=== PATIENT | male | born 1975 | race Hispanic/Latino ===

== ENCOUNTER 2021-09-30 11:55 | Inpatient (IN) | payer BC, OTHER ==
[~2021-09-30] VITALS: Ht 172.7 cm; Wt 91.6 kg
[2021-09-30] MEDS: SODIUM CHLORIDE 0.9% 1000ML 1,000 ML IV SCH ×4 (10:00→16:00)
[2021-09-30] MEDS ORDERED: CEFTRIAXONE 1 GM VIAL IM ONE (12:15)
[2021-09-30] MEDS ORDERED: INSULIN REGULAR, HUMAN 100 UNIT/1 ML SQ ONE (12:15)
[2021-09-30] MEDS ORDERED: AZITHROMYCIN 250 MG TAB PO ONE (12:15)
[2021-09-30] MEDS ORDERED: DILTIAZEM HCL 5 MG/ML 5 ML VIAL IV ONE (12:30)
[2021-09-30 12:47] LABS: BASOPHILS # (AUTO) 0.1 (0.0-0.1); BASOPHILS % 0.8 % (0.0-1.0); EOSINOPHILS # (AUTO) 0.1 (0.0-0.4); EOSINOPHILS % 0.8 % (0.0-6.0); HEMATOCRIT 53.5 % (38.2-49.6); LYMPHOCYTES # (AUTO) 1.8 (1.0-3.2); LYMPHOCYTES % 22.9 % (18.0-39.1); MEAN CORPUSCULAR HEMOGLOBIN 33.2 pg (28-32); MEAN CORPUSCULAR HGB CONC 35.5 g/dL (31-35); MEAN CORPUSCULAR VOLUME 93.4 fL (81-99); MONOCYTES # (AUTO) 0.6 (0.2-0.8); MONOCYTES % 7.9 % (4.4-11.3); NEUTROPHILS # (AUTO) 5.1 (2.1-6.9); NEUTROPHILS % 66.4 % (38.7-80.0); PLATELET COUNT 175 x10e3/uL (140-360); RED BLOOD COUNT 5.73 x10e6/uL (4.3-5.7)
[2021-09-30 13:06] LABS: ALBUMIN 3.1 g/dL (3.5-5.0); ALBUMIN/GLOBULIN RATIO 0.8 (0.8-2.0); ANION GAP 14.9 mmol/L (8-16); CREATININE, SERUM 1.25 mg/dL (0.72-1.25); POTASSIUM 3.9 mmol/L (3.5-5.1)
[2021-09-30] MEDS ORDERED: INSULIN REGULAR, HUMAN 100 UNIT/1 ML IV ONE (13:30)
[2021-09-30] MEDS ORDERED: ONDANSETRON HCL INJ 2MG/ML 2ML 2 MG/ML VIAL IV PRN (15:00)
[2021-09-30] MEDS ORDERED: DILTIAZEM HCL ER 120 MG CAP PO STA (16:48)
[2021-09-30] MEDS ORDERED: DILTIAZEM HCL 5 MG/ML 5 ML VIAL IV STA (17:13)
[2021-09-30] MEDS ORDERED: DIGOXIN INJ 0.25 MG/ML 2 ML AMP IV ONE (17:15)
[2021-09-30] MEDS: VALACYCLOVIR HCL 500 MG TAB PO SCH (17:20)
[2021-09-30] MEDS: HYDROCODONE/APAP 5MG-325MG TAB PO PRN (21:58)
[2021-10-01 00:36] LABS: CREATINE KINASE MB 1.3 ng/mL (0-5.0)
[2021-10-01] MEDS ORDERED: POLYETHYLENE GLYCOL 3350 17 GM PACK PO PRN (01:30)
[2021-10-01] MEDS ORDERED: ACETAMINOPHEN 325 MG TAB PO PRN (01:30)
[2021-10-01] MEDS ORDERED: TEMAZEPAM 7.5 MG CAP PO PRN (01:30)
[2021-10-01 08:42] LABS: BASOPHILS # (AUTO) 0.1 (0.0-0.1); EOSINOPHILS # (AUTO) 0.1 (0.0-0.4); EOSINOPHILS % 1.4 % (0.0-6.0); HEMATOCRIT 51.6 % (38.2-49.6); HEMOGLOBIN 18.2 g/dL (14.0-18.0); LYMPHOCYTES # (AUTO) 2.1 (1.0-3.2); LYMPHOCYTES % 26.9 % (18.0-39.1); MEAN CORPUSCULAR HEMOGLOBIN 33.5 pg (28-32); MEAN CORPUSCULAR HGB CONC 35.3 g/dL (31-35); MEAN CORPUSCULAR VOLUME 94.9 fL (81-99); MONOCYTES # (AUTO) 0.6 (0.2-0.8); MONOCYTES % 7.2 % (4.4-11.3); NEUTROPHILS # (AUTO) 4.9 (2.1-6.9); NEUTROPHILS % 61.9 % (38.7-80.0); PLATELET COUNT 168 x10e3/uL (140-360); RED BLOOD COUNT 5.44 x10e6/uL (4.3-5.7); RED CELL DISTRIBUTION WIDTH 12.2 % (11.7-14.4)
[2021-10-01 09:04] LABS: CHOL/HDL RATIO 7.6 (3.9-4.7); MAGNESIUM 1.8 MG/DL (1.3-2.1); PHOSPHORUS 2.1 MG/DL (2.3-4.7)
[2021-10-01 09:08] LABS: ANION GAP 11.7 mmol/L (8-16); CALCIUM 8.6 mg/dL (8.4-10.2); CREATININE, SERUM 1.16 mg/dL (0.72-1.25); POTASSIUM 5.7 mmol/L (3.5-5.1)
[2021-10-01] MEDS ORDERED: DEXTROSE 50% SYRINGE 50 ML IV PRN ×2 (09:15→17:15)
[2021-10-01 09:16] LABS: CREATINE KINASE MB 1.2 ng/mL (0-5.0)
[2021-10-01 09:25] LABS: THYROID STIMULATING HORMONE 19.909 uIU/mL (0.350-4.940)
[2021-10-01 09:46] LABS: LYMPHOCYTES % (MANUAL) 40 % (19-48); MONOCYTES % (MANUAL) 5 % (3.4-9.0); MYELOCYTES % (MANUAL) 1 % (0-0); NEUTROPHILS % (MANUAL) 54 % (40-74); PLATELET ESTIMATE ADEQUATE; PLATELET MORPHOLOGY COMMENT NORMAL; RBC MORPHOLOGY COMMENT NORMAL
[2021-10-01] MEDS: DOCUSATE SODIUM 100 MG CAP PO SCH ×2 (10:00→17:00)
[2021-10-01] MEDS ORDERED: SODIUM PHOSPHATE 15 MMOL in SODIUM CHLORIDE 0.9% 250ML 250 ML INJ ONE (10:00)
[2021-10-01] MEDS: SODIUM CHLORIDE 0.9% 1000ML 1,000 ML IV SCH ×3 (10:00→23:58)
[2021-10-01] MEDS: VALACYCLOVIR HCL 500 MG TAB PO SCH ×2 (10:00→17:00)
[2021-10-01] MEDS ORDERED: SOD POLYSTYRENE SULFONATE SUSP 15 GM/60 ML BTL PO ONE (10:00)
[2021-10-01] MEDS: FAMOTIDINE 20 MG TAB PO SCH ×2 (10:00→16:30)
[2021-10-01 10:38] VITALS: BP 129/111
[2021-10-01] MEDS: METOPROLOL TARTRATE INJ 1 MG/ML VIAL IV PRN (10:40)
[2021-10-01 11:04] VITALS: BP 153/111
[2021-10-01] MEDS ORDERED: INSULIN REGULAR, HUMAN 100 UNIT/1 ML SQ SCH (11:30)
[2021-10-01 12:00] VITALS: BP 130/102
[2021-10-01] MEDS ORDERED: INSULIN REGULAR, HUMAN 100 UNIT/1 ML IV ONE (12:15)
[2021-10-01 16:00] VITALS: BP 142/99
[2021-10-01] MEDS: ASCORBIC ACID 500 MG TAB PO SCH (17:00)
[2021-10-01] MEDS: ZINC SULFATE 220 MG CAP PO SCH (17:00)
[2021-10-01] MEDS ORDERED: WARFARIN SOD 2 MG TAB PO SCH (17:00)
[2021-10-01] MEDS: INSULIN LISPRO 100 UNIT/1 ML 3ML VIAL SQ SCH ×3 (17:30→20:15)
[2021-10-01 17:52] LABS: INR 0.93; PROTHROMBIN TIME 13.2 seconds (11.9-14.5)
[2021-10-01 19:52] VITALS: BP 142/99
[2021-10-01] MEDS: INSULIN GLARGINE 100 UNITS/ML VIAL SQ SCH (20:15)
[2021-10-01 21:00] VITALS: BP 142/99
[2021-10-01] MEDS ORDERED: INSULIN GLARGINE 100 UNITS/ML VIAL SQ SCH (21:00)
[2021-10-01] MEDS: APIXABAN 5 MG TABLET PO SCH (21:46)
[2021-10-01] MEDS: METOPROLOL SUCCINATE 50 MG TAB XL PO SCH (21:47)
[2021-10-01] MEDS ORDERED: CEFTRIAXONE 500 MG VIAL IM ONE (22:45)
[2021-10-01] MEDS ORDERED: LIDOCAINE HCL 1% LOCAL INJ 20 ML VIAL IM ONE (23:15)
[2021-10-02] VITALS (7 sets, daily range): BP systolic 136–154; BP diastolic 97–109
[2021-10-02 06:43] LABS: BASOPHILS # (AUTO) 0.1 (0.0-0.1); EOSINOPHILS # (AUTO) 0.1 (0.0-0.4); EOSINOPHILS % 1.1 % (0.0-6.0); HEMOGLOBIN 17.3 g/dL (14.0-18.0); LYMPHOCYTES # (AUTO) 2.6 (1.0-3.2); LYMPHOCYTES % 32.6 % (18.0-39.1); MEAN CORPUSCULAR HEMOGLOBIN 32.8 pg (28-32); MEAN CORPUSCULAR HGB CONC 34.6 g/dL (31-35); MEAN CORPUSCULAR VOLUME 94.9 fL (81-99); MONOCYTES # (AUTO) 0.5 (0.2-0.8); MONOCYTES % 6.8 % (4.4-11.3); NEUTROPHILS # (AUTO) 4.5 (2.1-6.9); NEUTROPHILS % 57.5 % (38.7-80.0); PLATELET COUNT 172 x10e3/uL (140-360); RED BLOOD COUNT 5.27 x10e6/uL (4.3-5.7)
[2021-10-02] MEDS: SODIUM CHLORIDE 0.9% 1000ML 1,000 ML IV SCH ×3 (07:00→20:30)
[2021-10-02 07:25] LABS: ANION GAP 11.8 mmol/L (8-16); CALCIUM 7.9 mg/dL (8.4-10.2); CREATININE, SERUM 0.99 mg/dL (0.72-1.25); MAGNESIUM 1.8 MG/DL (1.3-2.1); PHOSPHORUS 2.8 MG/DL (2.3-4.7); POTASSIUM 3.8 mmol/L (3.5-5.1)
[2021-10-02] MEDS ORDERED: DILTIAZEM HCL 30 MG TAB PO SCH (07:30)
[2021-10-02] MEDS: INSULIN LISPRO 100 UNIT/1 ML 3ML VIAL SQ SCH ×7 (07:30→20:26)
[2021-10-02] MEDS: FAMOTIDINE 20 MG TAB PO SCH ×2 (07:30→16:30)
[2021-10-02] MEDS: ZINC SULFATE 220 MG CAP PO SCH ×2 (09:00→17:00)
[2021-10-02] MEDS: APIXABAN 5 MG TABLET PO SCH ×2 (09:00→17:00)
[2021-10-02] MEDS: METOPROLOL SUCCINATE 50 MG TAB XL PO SCH ×3 (09:00→20:25)
[2021-10-02] MEDS: CHOLECALCIFEROL 400 UNIT TAB PO SCH (09:00)
[2021-10-02] MEDS: DOCUSATE SODIUM 100 MG CAP PO SCH ×2 (09:00→17:00)
[2021-10-02] MEDS: ASCORBIC ACID 500 MG TAB PO SCH ×2 (09:00→17:00)
[2021-10-02] MEDS: VALACYCLOVIR HCL 500 MG TAB PO SCH ×2 (09:00→17:00)
[2021-10-02] MEDS: INSULIN GLARGINE 100 UNITS/ML VIAL SQ SCH (20:26)
[2021-10-03] VITALS (8 sets, daily range): BP systolic 128–148; BP diastolic 90–120
[2021-10-03] MEDS: LEVOTHYROXINE SODIUM 75 MCG TAB PO SCH (05:29)
[2021-10-03] MEDS ORDERED: ONDANSETRON HCL 4 MG ORAL DISINTEGRATING TAB PO PRN (07:45)
[2021-10-03] MEDS: FAMOTIDINE 20 MG TAB PO SCH ×2 (08:59→16:17)
[2021-10-03] MEDS: SODIUM CHLORIDE 0.9% 1000ML 1,000 ML IV SCH ×2 (08:59→16:12)
[2021-10-03] MEDS: DOCUSATE SODIUM 100 MG CAP PO SCH ×2 (09:01→16:17)
[2021-10-03] MEDS: CHOLECALCIFEROL 400 UNIT TAB PO SCH (09:01)
[2021-10-03] MEDS: METOPROLOL SUCCINATE 50 MG TAB XL PO SCH ×2 (09:01→22:21)
[2021-10-03] MEDS: ASCORBIC ACID 500 MG TAB PO SCH ×2 (09:01→16:17)
[2021-10-03] MEDS: VALACYCLOVIR HCL 500 MG TAB PO SCH ×2 (09:01→16:17)
[2021-10-03] MEDS: ZINC SULFATE 220 MG CAP PO SCH ×2 (09:01→16:17)
[2021-10-03] MEDS: APIXABAN 5 MG TABLET PO SCH ×2 (09:01→16:17)
[2021-10-03] MEDS: INSULIN LISPRO 100 UNIT/1 ML 3ML VIAL SQ SCH ×7 (09:02→22:24)
[2021-10-03] MEDS ORDERED: INSULIN GLARGINE 100 UNITS/ML VIAL SQ SCH (21:00)
[2021-10-04] VITALS (7 sets, daily range): BP systolic 130–147; BP diastolic 78–104
[2021-10-04] MEDS: SODIUM CHLORIDE 0.9% 1000ML 1,000 ML IV SCH ×3 (01:12→13:06)
[2021-10-04] MEDS: METOPROLOL TARTRATE INJ 1 MG/ML VIAL IV PRN (05:05)
[2021-10-04] MEDS: LEVOTHYROXINE SODIUM 75 MCG TAB PO SCH (06:29)
[2021-10-04] MEDS: INSULIN LISPRO 100 UNIT/1 ML 3ML VIAL SQ SCH ×6 (07:27→15:39)
[2021-10-04] MEDS: FAMOTIDINE 20 MG TAB PO SCH ×2 (08:12→16:16)
[2021-10-04] MEDS: DOCUSATE SODIUM 100 MG CAP PO SCH ×2 (08:12→16:16)
[2021-10-04] MEDS: VALACYCLOVIR HCL 500 MG TAB PO SCH ×2 (08:13→16:16)
[2021-10-04] MEDS: APIXABAN 5 MG TABLET PO SCH ×2 (08:13→16:16)
[2021-10-04] MEDS: ZINC SULFATE 220 MG CAP PO SCH ×2 (08:13→16:17)
[2021-10-04] MEDS: CHOLECALCIFEROL 400 UNIT TAB PO SCH (08:13)
[2021-10-04] MEDS: ASCORBIC ACID 500 MG TAB PO SCH ×2 (08:13→16:16)
[2021-10-04] MEDS: METOPROLOL SUCCINATE 50 MG TAB XL PO SCH (08:13)
[2021-10-04] MEDS: HYDROCODONE/APAP 5MG-325MG TAB PO PRN (11:42)
[2021-10-04] MEDS ORDERED: SYNTHROID75 MCG PO (15:54)
[2021-10-04] MEDS ORDERED: Cholecalciferol PO (15:54)
[2021-10-04] MEDS ORDERED: TOPROL XL50 MG PO (15:54)
[2021-10-04] MEDS ORDERED: VALTREX500 MG PO (15:54)
[2021-10-04] MEDS ORDERED: Insulin Glargine SQ (15:54)
[2021-10-04] MEDS ORDERED: Insulin Lispro SQ (15:54)
[2021-10-04] MEDS ORDERED: ASCORBIC ACID500 MG PO (15:54)
[2021-10-04] MEDS ORDERED: ELIQUIS5 MG PO (15:54)
== END 2021-10-04 17:19 | disposition home or self-care (01) | DRG 727 ==
LOC: ER 12:02 → ERHOLD 14:51 → MED/SURG2 10-01 09:24
PROVIDERS: ADMIT Internal Medicine; ATTEND Internal Medicine
DX: A60.01 Herpesviral infection of penis (principal); U07.1 COVID-19; A54.01 Gonococcal cystitis and urethritis, unspecified; I48.20 Chronic atrial fibrillation, unspecified; E11.65 Type 2 diabetes mellitus with hyperglycemia; I10 Essential (primary) hypertension; Z91.14 Patient's other noncompliance with medication regimen; Z84.1 Family history of disorders of kidney and ureter; E87.5 Hyperkalemia; E83.39 Other disorders of phosphorus metabolism; E05.90 Thyrotoxicosis, unspecified without thyrotoxic crisis or storm; E78.5 Hyperlipidemia, unspecified; Z79.4 Long term (current) use of insulin; E03.9 Hypothyroidism, unspecified; Z72.0 Tobacco use
CPT/HCPCS: 36415; 71045; 80048; 80053; 80061; 82550; 82553; 82948; 83036; 83735; 84100; 84443; 84484; 85025; 85610; 86592; 87491; 87591; 93005; 93306; 94799; 99285; J0696; J1160; J1815; J1817; J2001; J2405; J7030; J7050; U0002

== ENCOUNTER 2022-04-16 08:22 | Emergency (ER) | payer BC, OTHER ==
[~2022-04-16] VITALS: Ht 172.7 cm; Wt 91.6 kg
[~2022-04-16 08:22] MED LIST: ASCORBIC ACID500 MG PO; Cholecalciferol PO; ELIQUIS5 MG PO; Insulin Glargine SQ; Insulin Lispro SQ; SYNTHROID75 MCG PO; TOPROL XL50 MG PO; VALTREX500 MG PO
[2022-04-16] MEDS ORDERED: DOXYCYCLINE HY100 MG PO (08:32)
== END 2022-04-16 08:42 | disposition home or self-care (01) ==
LOC: ER 08:25
DX: L02.212 Cutaneous abscess of back [any part, except buttock and flank] (principal); I10 Essential (primary) hypertension; E11.9 Type 2 diabetes mellitus without complications; I48.91 Unspecified atrial fibrillation
CPT/HCPCS: 99284

== ENCOUNTER 2022-07-26 09:27 | Inpatient (IN) | payer SELFPAY ==
[~2022-07-26] VITALS: Ht 172.7 cm; Wt 91.6 kg
[~2022-07-26 09:27] MED LIST changes: +DOXYCYCLINE HY100 MG PO
[2022-07-26] MEDS ORDERED: DILTIAZEM HCL 5 MG/ML 5 ML VIAL IV STA (09:46)
[2022-07-26] MEDS ORDERED: METOPROLOL TARTRATE INJ 1 MG/ML VIAL IV STA (09:46)
[2022-07-26] MEDS ORDERED: DIGOXIN INJ 0.25 MG/ML 2 ML AMP IV STA (09:46)
[2022-07-26 10:10] LABS: BASOPHILS # (AUTO) 0.1 (0.0-0.1); EOSINOPHILS % 0.3 % (0.0-6.0); HEMATOCRIT 52.3 % (38.2-49.6); HEMOGLOBIN 17.7 g/dL (14.0-18.0); LYMPHOCYTES # (AUTO) 0.9 (1.0-3.2); LYMPHOCYTES % 13.1 % (18.0-39.1); MEAN CORPUSCULAR HEMOGLOBIN 34.4 pg (28-32); MEAN CORPUSCULAR HGB CONC 33.8 g/dL (31-35); MEAN CORPUSCULAR VOLUME 101.6 fL (81-99); MONOCYTES # (AUTO) 0.4 (0.2-0.8); MONOCYTES % 6.5 % (4.4-11.3); NEUTROPHILS # (AUTO) 5.2 (2.1-6.9); NEUTROPHILS % 77.2 % (38.7-80.0); PLATELET COUNT 130 x10e3/uL (140-360); RED BLOOD COUNT 5.15 x10e6/uL (4.3-5.7); RED CELL DISTRIBUTION WIDTH 13.2 % (11.7-14.4)
[2022-07-26 10:40] LABS: ALBUMIN 2.9 g/dL (3.5-5.0); ALBUMIN/GLOBULIN RATIO 0.8 (0.8-2.0); ANION GAP 16.9 mmol/L (8-16); CALCIUM 8.7 mg/dL (8.4-10.2); CREATININE, SERUM 1.16 mg/dL (0.72-1.25); POTASSIUM 4.9 mmol/L (3.5-5.1)
[2022-07-26 10:46] LABS: CREATINE KINASE MB 5.6 ng/mL (0-5.0)
[2022-07-26] MEDS ORDERED: Morphine 4mg INJECTION 4 MG/ML INJ IV PRN (11:30)
[2022-07-26] MEDS ORDERED: ONDANSETRON HCL INJ 2MG/ML 2ML 2 MG/ML VIAL IV PRN (11:30)
[2022-07-26] MEDS ORDERED: IOPAMIDOL 370 MG/ML 100 ML INFUS..BTL INJ ONE (11:50)
[2022-07-26] MEDS ORDERED: METOPROLOL TARTRATE 50 MG TAB PO ONE (15:15)
[2022-07-26] MEDS: DILTIAZEM HCL CR 120MG TAB PO SCH (15:25)
[2022-07-26] MEDS ORDERED: DEXTROSE 50% SYRINGE 50 ML IV PRN (16:30)
[2022-07-26 16:35] VITALS: BP 172/135
[2022-07-26] MEDS: APIXABAN 5 MG TABLET PO SCH (17:18)
[2022-07-26] MEDS: ASCORBIC ACID 500 MG TAB PO SCH (17:18)
[2022-07-26] MEDS: METOPROLOL SUCCINATE 50 MG TAB XL PO SCH (17:19)
[2022-07-26] MEDS: INSULIN LISPRO 100 UNIT/1 ML 3ML VIAL SQ SCH ×2 (17:22→21:54)
[2022-07-26 18:01] LABS: CREATINE KINASE MB 4.8 ng/mL (0-5.0)
[2022-07-26 20:00] VITALS: BP 112/93
[2022-07-26 20:01] VITALS: BP 112/93
[2022-07-26] MEDS ORDERED: INSULIN GLARGINE 34 UNIT SQ SCH (21:00)
[2022-07-26] MEDS ORDERED: SODIUM CHLORIDE 0.9% 250ML 250 ML ONE (21:51)
[2022-07-26] MEDS: INSULIN GLARGINE 100 UNITS/ML VIAL SQ SCH (21:55)
[2022-07-26] MEDS: GUAIFENESIN 600MG/DEXTROMETHORPHAN 30MG TABSR PO PRN (23:07)
[2022-07-26] MEDS ORDERED: METOPROLOL TARTRATE INJ 1 MG/ML VIAL IV PRN (23:30)
[2022-07-26] MEDS ORDERED: POLYETHYLENE GLYCOL 3350 17 GM PACK PO PRN (23:30)
[2022-07-27] VITALS (8 sets, daily range): BP systolic 105–116; BP diastolic 83–99
[2022-07-27 06:00] LABS: BASOPHILS # (AUTO) 0.1 (0.0-0.1); BASOPHILS % 0.8 % (0.0-1.0); EOSINOPHILS % 0.2 % (0.0-6.0); HEMATOCRIT 48.1 % (38.2-49.6); HEMOGLOBIN 17.2 g/dL (14.0-18.0); LYMPHOCYTES # (AUTO) 1.1 (1.0-3.2); LYMPHOCYTES % 13.1 % (18.0-39.1); MEAN CORPUSCULAR HEMOGLOBIN 34.3 pg (28-32); MEAN CORPUSCULAR HGB CONC 35.8 g/dL (31-35); MONOCYTES # (AUTO) 0.6 (0.2-0.8); MONOCYTES % 7.2 % (4.4-11.3); NEUTROPHILS # (AUTO) 6.8 (2.1-6.9); NEUTROPHILS % 77.8 % (38.7-80.0); PLATELET COUNT 131 x10e3/uL (140-360); RED BLOOD COUNT 5.01 x10e6/uL (4.3-5.7); RED CELL DISTRIBUTION WIDTH 13.4 % (11.7-14.4)
[2022-07-27] MEDS ORDERED: LEVOTHYROXINE SODIUM 75 MCG TAB PO SCH (06:00)
[2022-07-27 06:06] LABS: INR 1.06; PROTHROMBIN TIME 14.8 seconds (11.9-14.5)
[2022-07-27 06:19] LABS: ALBUMIN 2.5 g/dL (3.5-5.0); ALBUMIN/GLOBULIN RATIO 0.7 (0.8-2.0); ANION GAP 14.1 mmol/L (8-16); CALCIUM 8.4 mg/dL (8.4-10.2); CREATININE, SERUM 0.89 mg/dL (0.72-1.25); POTASSIUM 4.1 mmol/L (3.5-5.1)
[2022-07-27 06:59] LABS: MAGNESIUM 1.7 MG/DL (1.3-2.1); PHOSPHORUS 2.3 MG/DL (2.3-4.7)
[2022-07-27] MEDS: INSULIN LISPRO 100 UNIT/1 ML 3ML VIAL SQ SCH ×7 (07:30→21:39)
[2022-07-27] MEDS ORDERED: PANTOPRAZOLE SOD 40 MG TABEC PO SCH (07:30)
[2022-07-27] MEDS ORDERED: INSULIN LISPRO 18 UNIT SQ SCH (07:30)
[2022-07-27 08:07] LABS: CREATINE KINASE MB 3.1 ng/mL (0-5.0)
[2022-07-27] MEDS: APIXABAN 5 MG TABLET PO SCH ×2 (08:50→17:18)
[2022-07-27] MEDS: METOPROLOL SUCCINATE 50 MG TAB XL PO SCH ×2 (08:50→21:29)
[2022-07-27] MEDS: ASCORBIC ACID 500 MG TAB PO SCH ×2 (08:50→17:18)
[2022-07-27] MEDS: DILTIAZEM HCL CR 120MG TAB PO SCH (08:51)
[2022-07-27] MEDS ORDERED: CHOLECALCIFEROL 400 UNIT PO SCH (09:00)
[2022-07-27] MEDS ORDERED: CHOLECALCIFEROL 400 UNIT TAB PO SCH (09:00)
[2022-07-27] MEDS ORDERED: MAGNESIUM SULF 1GRAM/DEXTROSE 100 ML IV ONE (09:00)
[2022-07-27] MEDS: DOCUSATE SODIUM 100 MG CAP PO SCH ×2 (09:02→17:18)
[2022-07-27] MEDS: GUAIFENESIN 600MG/DEXTROMETHORPHAN 30MG TABSR PO PRN ×2 (11:25→21:41)
[2022-07-27] MEDS ORDERED: ONDANSETRON HCL 4 MG ORAL DISINTEGRATING TAB PO PRN (11:30)
[2022-07-27 14:47] LABS: CREATINE KINASE MB 3.4 ng/mL (0-5.0)
[2022-07-27] MEDS ORDERED: FUROSEMIDE 40 MG TAB PO SCH (18:15)
[2022-07-27] MEDS: INSULIN GLARGINE 100 UNITS/ML VIAL SQ SCH (21:39)
[2022-07-28] VITALS: BP 109/76
== END 2022-07-28 01:28 | disposition left against medical advice (07) | DRG 291 ==
LOC: ER 09:34 → ERHOLD 11:33 → MED/SURG3 16:01
PROVIDERS: ADMIT Internal Medicine; ATTEND Internal Medicine
DX: I11.0 Hypertensive heart disease with heart failure (principal); J18.9 Pneumonia, unspecified organism; I48.91 Unspecified atrial fibrillation; K74.60 Unspecified cirrhosis of liver; I50.9 Heart failure, unspecified; E11.65 Type 2 diabetes mellitus with hyperglycemia; Z91.14 Patient's other noncompliance with medication regimen; E83.42 Hypomagnesemia; Z20.822 Contact with and (suspected) exposure to COVID-19; R74.01 Elevation of levels of liver transaminase levels; F17.200 Nicotine dependence, unspecified, uncomplicated
CPT/HCPCS: 36415; 71045; 71260; 74177; 76705; 80053; 82550; 82553; 82948; 83690; 83735; 83880; 84100; 84484; 85025; 85379; 85610; 87400; 93005; 94799; 96360; 99284; J1160; J2543; J3475; J7050; Q9967

== ENCOUNTER 2022-10-12 10:00 | Inpatient (IN) | payer SELFPAY ==
[~2022-10-12] VITALS: Ht 172.7 cm; Wt 91.6 kg
[2022-10-12 10:30] LABS: BASOPHILS # (AUTO) 0.1 (0.0-0.1); EOSINOPHILS % 0.4 % (0.0-6.0); HEMATOCRIT 52.1 % (38.2-49.6); HEMOGLOBIN 17.7 g/dL (14.0-18.0); LYMPHOCYTES # (AUTO) 1.1 (1.0-3.2); LYMPHOCYTES % 13.6 % (18.0-39.1); MEAN CORPUSCULAR HEMOGLOBIN 34.5 pg (28-32); MEAN CORPUSCULAR VOLUME 101.6 fL (81-99); MONOCYTES # (AUTO) 0.5 (0.2-0.8); MONOCYTES % 6.5 % (4.4-11.3); NEUTROPHILS # (AUTO) 6.3 (2.1-6.9); NEUTROPHILS % 77.2 % (38.7-80.0); PLATELET COUNT 153 x10e3/uL (140-360); RED BLOOD COUNT 5.13 x10e6/uL (4.3-5.7); RED CELL DISTRIBUTION WIDTH 12.2 % (11.7-14.4)
[2022-10-12] MEDS ORDERED: ONDANSETRON HCL INJ 2MG/ML 2ML 2 MG/ML VIAL IV STA (10:35)
[2022-10-12] MEDS ORDERED: SODIUM CHLORIDE 0.9% 1000ML 1,000 ML IV STA ×2 (10:35→11:37)
[2022-10-12] MEDS ORDERED: Morphine 4mg INJECTION 4 MG/ML INJ IV STA (10:35)
[2022-10-12 10:40] LABS: INR 0.91; PROTHROMBIN TIME 12.5 seconds (11.9-14.5)
[2022-10-12 10:41] LABS: PARTIAL THROMBOPLASTIN TIME 28.1 seconds (23.8-35.5)
[2022-10-12] MEDS ORDERED: INSULIN REGULAR, HUMAN 100 UNIT/1 ML IV ONE (10:45)
[2022-10-12] MEDS ORDERED: METOPROLOL TARTRATE INJ 1 MG/ML VIAL IV ONE (10:45)
[2022-10-12] MEDS ORDERED: Vancomycin IV 1 GM in SODIUM CHLORIDE 0.9% 250ML 250 ML IV ONE (10:45)
[2022-10-12 10:54] LABS: ALANINE AMINOTRANSFERASE 61 IU/L (0-55); ALBUMIN 2.6 g/dL (3.5-5.0); ALBUMIN/GLOBULIN RATIO 0.6 (0.8-2.0); ALKALINE PHOSPHATASE 210 IU/L (40-150); ANION GAP 15.3 mmol/L (8-16); BLOOD UREA NITROGEN 15 mg/dL (7-26); BUN/CREATININE RATIO 10 (6-25); CALCIUM 8.9 mg/dL (8.4-10.2); CARBON DIOXIDE 25 mmol/L (22-29); CHLORIDE 92 mmol/L (98-107); CREATINE KINASE 196 IU/L (30-200); CREATININE, SERUM 1.52 mg/dL (0.72-1.25); MAGNESIUM 1.8 MG/DL (1.3-2.1); POTASSIUM 4.3 mmol/L (3.5-5.1); SODIUM 128 mmol/L (136-145)
[2022-10-12 10:56] LABS: GLUCOSE 739 mg/dL (74-118)
[2022-10-12] MEDS ORDERED: IOPAMIDOL 370 MG/ML 100 ML INFUS..BTL INJ ONE (11:18)
[2022-10-12] MEDS ORDERED: METOPROLOL TARTRATE 25 MG TAB PO ONE (11:45)
[2022-10-12] MEDS ORDERED: INSULIN GLARGINE 100 UNITS/ML VIAL SQ ONE (12:30)
[2022-10-12] MEDS ORDERED: ENOXAPARIN SODIUM INJ 100 MG/ML SYR SC SCH (12:30)
[2022-10-12] MEDS ORDERED: DEXTROSE 50% SYRINGE 50 ML IV PRN (12:30)
[2022-10-12] MEDS ORDERED: ONDANSETRON HCL INJ 2MG/ML 2ML 2 MG/ML VIAL IV PRN (12:30)
[2022-10-12] MEDS ORDERED: Vancomycin IV 1 GM in SODIUM CHLORIDE 0.9% 250ML 250 ML IV SCH (12:30)
[2022-10-12 14:43] LABS: CLARITY,URINE CLEAR (CLEAR); COLOR,URINE YELLOW (YELLOW); LEUKOCYTE ESTERASE ,URINE NEGATIVE (NEGATIVE); NITRITE,URINE NEGATIVE (NEGATIVE)
[2022-10-12 14:44] LABS: KETONES,URINE NEGATIVE (NEGATIVE); PROTEIN,URINE DIPSTICK >=300 (NEGATIVE); URINE UROBILINOGEN 1 mg/dL (0.2 - 1)
[2022-10-12] MEDS: SODIUM CHLORIDE 0.9% 1000ML 1,000 ML IV SCH (14:50)
[2022-10-12 14:52] LABS: BACTERIA,URINE FEW /HPF; EPITHELIAL CELLS,URINE RARE /LPF; RBC,URINE 0-5 /HPF (0-5)
[2022-10-12 15:00] VITALS: BP 121/92
[2022-10-12] MEDS ORDERED: METOPROLOL TARTRATE 25 MG TAB PO SCH (17:00)
[2022-10-12 17:21] VITALS: BP 121/92
[2022-10-12] MEDS: ASCORBIC ACID 500 MG TAB PO SCH (17:28)
[2022-10-12] MEDS ORDERED: FLUCONAZOLE 100 MG TAB PO ONE (17:30)
[2022-10-12] MEDS: INSULIN LISPRO 100 UNIT/1 ML 3ML VIAL SQ SCH ×2 (17:30→21:46)
[2022-10-12] MEDS: Morphine 2mg Syringe 2 MG/ML SYR IV PRN ×2 (17:36→23:37)
[2022-10-12] MEDS: VALACYCLOVIR HCL 500 MG TAB PO SCH (17:55)
[2022-10-12 20:00] VITALS: BP 98/81
[2022-10-12] MEDS ORDERED: INSULIN GLARGINE 100 UNITS/ML VIAL SQ SCH (21:00)
[2022-10-12] MEDS: METOPROLOL SUCCINATE 50 MG TAB XL PO SCH (21:36)
[2022-10-12] MEDS ORDERED: METOPROLOL TARTRATE INJ 1 MG/ML VIAL IV PRN (22:45)
[2022-10-12] MEDS ORDERED: DIGOXIN INJ 0.25 MG/ML 2 ML AMP IV ONE (22:45)
[2022-10-12 23:16] VITALS: BP 98/81
[2022-10-13] VITALS (8 sets, daily range): BP systolic 109–137; BP diastolic 83–97
[2022-10-13 05:19] LABS: ALBUMIN 2.2 g/dL (3.5-5.0); ALBUMIN/GLOBULIN RATIO 0.6 (0.8-2.0); ANION GAP 11.7 mmol/L (8-16); CALCIUM 8.3 mg/dL (8.4-10.2); CREATININE, SERUM 0.91 mg/dL (0.72-1.25); POTASSIUM 3.7 mmol/L (3.5-5.1)
[2022-10-13] MEDS: SODIUM CHLORIDE 0.9% 1000ML 1,000 ML IV SCH ×3 (05:59→23:55)
[2022-10-13] MEDS: LEVOTHYROXINE SODIUM 75 MCG TAB PO SCH (06:00)
[2022-10-13] MEDS: Morphine 2mg Syringe 2 MG/ML SYR IV PRN ×4 (06:12→20:47)
[2022-10-13] MEDS: INSULIN LISPRO 100 UNIT/1 ML 3ML VIAL SQ SCH ×7 (07:30→21:00)
[2022-10-13] MEDS: VALACYCLOVIR HCL 500 MG TAB PO SCH ×2 (09:10→17:20)
[2022-10-13] MEDS: FLUCONAZOLE 100 MG TAB PO SCH (09:10)
[2022-10-13] MEDS: ASCORBIC ACID 500 MG TAB PO SCH ×2 (09:10→17:20)
[2022-10-13] MEDS: APIXABAN 5 MG TABLET PO SCH ×2 (09:10→17:20)
[2022-10-13] MEDS: METOPROLOL SUCCINATE 50 MG TAB XL PO SCH ×2 (09:11→21:37)
[2022-10-13 14:45] LABS: CHOL/HDL RATIO 5.7 (3.9-4.7); CHOLESTEROL 311 MD/DL (0-199); HDL CHOLESTEROL 55 MG/DL (40-60); LDL CHOLESTEROL 235 MG/DL (60-130); TRIGLYCERIDES 106 MG/DL (0-149)
[2022-10-13 15:05] LABS: FREE T4 (FREE THYROXINE) < 0.40 ng/dL (0.8-1.8)
[2022-10-13] MEDS ORDERED: INSULIN GLARGINE 100 UNITS/ML VIAL SQ SCH (21:00)
[2022-10-14] VITALS: BP 106/82
[2022-10-14 04:00] VITALS: BP 128/84
[2022-10-14] MEDS: LEVOTHYROXINE SODIUM 75 MCG TAB PO SCH (05:19)
[2022-10-14 05:42] LABS: BASOPHILS # (AUTO) 0.1 (0.0-0.1); BASOPHILS % 0.9 % (0.0-1.0); EOSINOPHILS # (AUTO) 0.2 (0.0-0.4); EOSINOPHILS % 1.9 % (0.0-6.0); HEMATOCRIT 49.3 % (38.2-49.6); HEMOGLOBIN 16.8 g/dL (14.0-18.0); LYMPHOCYTES # (AUTO) 1.9 (1.0-3.2); MEAN CORPUSCULAR HEMOGLOBIN 34.4 pg (28-32); MEAN CORPUSCULAR HGB CONC 34.1 g/dL (31-35); MONOCYTES # (AUTO) 0.6 (0.2-0.8); MONOCYTES % 7.8 % (4.4-11.3); NEUTROPHILS # (AUTO) 5.2 (2.1-6.9); NEUTROPHILS % 64.4 % (38.7-80.0); PLATELET COUNT 161 x10e3/uL (140-360); RED BLOOD COUNT 4.88 x10e6/uL (4.3-5.7); RED CELL DISTRIBUTION WIDTH 12.6 % (11.7-14.4)
[2022-10-14 06:04] LABS: ANION GAP 13.9 mmol/L (8-16); CALCIUM 8.1 mg/dL (8.4-10.2); CREATININE, SERUM 0.9 mg/dL (0.72-1.25); POTASSIUM 3.9 mmol/L (3.5-5.1)
[2022-10-14] MEDS: INSULIN LISPRO 100 UNIT/1 ML 3ML VIAL SQ SCH ×4 (07:30→12:02)
[2022-10-14 08:00] VITALS: BP 128/84
[2022-10-14 08:33] VITALS: BP 117/94
[2022-10-14] MEDS: FLUCONAZOLE 100 MG TAB PO SCH (08:51)
[2022-10-14] MEDS: METOPROLOL SUCCINATE 50 MG TAB XL PO SCH (08:51)
[2022-10-14] MEDS: APIXABAN 5 MG TABLET PO SCH (08:51)
[2022-10-14] MEDS: VALACYCLOVIR HCL 500 MG TAB PO SCH (08:52)
[2022-10-14] MEDS: ASCORBIC ACID 500 MG TAB PO SCH (08:52)
[2022-10-14 12:21] VITALS: BP 136/96
== END 2022-10-14 12:50 | disposition home or self-care (01) | DRG 638 ==
LOC: ER 10:05 → ERHOLD 12:34 → MED/SURG3 14:10
PROVIDERS: ADMIT Internal Medicine; ATTEND Internal Medicine
DX: E10.65 Type 1 diabetes mellitus with hyperglycemia (principal); B37.49 Other urogenital candidiasis; I48.20 Chronic atrial fibrillation, unspecified; I50.22 Chronic systolic (congestive) heart failure; N49.2 Inflammatory disorders of scrotum; I11.0 Hypertensive heart disease with heart failure; E03.9 Hypothyroidism, unspecified; F17.200 Nicotine dependence, unspecified, uncomplicated; K74.60 Unspecified cirrhosis of liver; Z79.2 Long term (current) use of antibiotics; Z79.4 Long term (current) use of insulin; Z79.01 Long term (current) use of anticoagulants; Z79.899 Other long term (current) drug therapy; Z90.49 Acquired absence of other specified parts of digestive tract; Z91.14 Patient's other noncompliance with medication regimen; Z86.16 Personal history of COVID-19
CPT/HCPCS: 0223U; 36415; 71045; 74177; 76870; 80048; 80053; 80061; 81001; 82550; 82553; 82948; 83036; 83605; 83735; 84439; 84443; 84484; 85025; 85610; 85730; 87040; 87086; 93005; 93976; 96361; 99252; 99284; J1160; J1650; J1815; J1817; J2270; J2405; J2543; J3370; J7030; J7050; Q9967

== ENCOUNTER 2022-11-11 03:12 | Inpatient (IN) | payer BC, OTHER ==
[~2022-11-11] VITALS: Ht 172.7 cm; Wt 91.6 kg
[2022-11-11] MEDS ORDERED: FENTANYL CITRATE/PF 100MCG/2 ML INJ IV ONE (03:30)
[2022-11-11] MEDS ORDERED: SODIUM CHLORIDE 0.9% 1000ML 1,000 ML IV ONE ×2 (03:30→04:15)
[2022-11-11] MEDS ORDERED: FENTANYL CITRATE/PF 100MCG/2 ML INJ ONE (03:43)
[2022-11-11 03:53] LABS: BASOPHILS # (AUTO) 0.1 (0.0-0.1); BASOPHILS % 1.3 % (0.0-1.0); EOSINOPHILS % 0.1 % (0.0-6.0); HEMATOCRIT 48.6 % (38.2-49.6); HEMOGLOBIN 17.4 g/dL (14.0-18.0); LYMPHOCYTES # (AUTO) 1.4 (1.0-3.2); LYMPHOCYTES % 15.2 % (18.0-39.1); MEAN CORPUSCULAR HEMOGLOBIN 35.1 pg (28-32); MEAN CORPUSCULAR HGB CONC 35.8 g/dL (31-35); MONOCYTES # (AUTO) 0.5 (0.2-0.8); MONOCYTES % 5.5 % (4.4-11.3); NEUTROPHILS % 76.3 % (38.7-80.0); PLATELET COUNT 159 x10e3/uL (140-360); RED BLOOD COUNT 4.96 x10e6/uL (4.3-5.7); RED CELL DISTRIBUTION WIDTH 12.9 % (11.7-14.4)
[2022-11-11 03:55] LABS: INR 0.98; PARTIAL THROMBOPLASTIN TIME 28.3 seconds (23.8-35.5); PROTHROMBIN TIME 13.2 seconds (11.9-14.5)
[2022-11-11 04:04] LABS: ALBUMIN/GLOBULIN RATIO 0.9 (0.8-2.0); ANION GAP 16.8 mmol/L (8-16); CALCIUM 9.3 mg/dL (8.4-10.2); CREATININE, SERUM 1.6 mg/dL (0.72-1.25); POTASSIUM 4.8 mmol/L (3.5-5.1)
[2022-11-11] MEDS ORDERED: IOPAMIDOL 370 MG/ML 100 ML INFUS..BTL INJ ONE (04:53)
[2022-11-11] MEDS ORDERED: SODIUM CHLORIDE 0.9% 200 ML ONE (04:54)
[2022-11-11 04:55] LABS: AMPHETAMINES SCREEN,URINE NEGATIVE (NEGATIVE); BENZODIAZEPINES SCREEN,URINE NEGATIVE (NEGATIVE); PHENCYCLIDINE SCREEN,URINE NEGATIVE (NEGATIVE)
[2022-11-11] MEDS ORDERED: LIDOCAINE HCL 1% LOCAL INJ 20 ML VIAL ONE (05:11)
[2022-11-11] MEDS ORDERED: INSULIN REGULAR, HUMAN 100 UNIT/1 ML IV ONE (05:30)
[2022-11-11] MEDS ORDERED: ONDANSETRON HCL INJ 2MG/ML 2ML 2 MG/ML VIAL IV PRN (06:00)
[2022-11-11] MEDS: SODIUM CHLORIDE 0.9% 1000ML 1,000 ML IV SCH ×2 (06:00→13:39)
[2022-11-11] MEDS ORDERED: Morphine 2mg Syringe 2 MG/ML SYR IV PRN (06:00)
[2022-11-11] MEDS ORDERED: DILTIAZEM HCL 5 MG/ML 5 ML VIAL IV STA (06:02)
[2022-11-11] MEDS ORDERED: DIGOXIN INJ 0.25 MG/ML 2 ML AMP IV ONE ×2 (07:00→08:00)
[2022-11-11] MEDS ORDERED: HYDROCODONE/APAP 10MG-325MG TAB PO ONE (07:00)
[2022-11-11] MEDS ORDERED: DIGOXIN INJ 0.25 MG/ML 2 ML AMP ONE (07:01)
[2022-11-11 07:07] LABS: HEMATOCRIT 42.6 % (38.2-49.6); HEMOGLOBIN 14.7 g/dL (14.0-18.0)
[2022-11-11 08:19] LABS: ALBUMIN 2.3 g/dL (3.5-5.0); ALBUMIN/GLOBULIN RATIO 0.9 (0.8-2.0); ANION GAP 14.9 mmol/L (8-16); CREATININE, SERUM 1.13 mg/dL (0.72-1.25); POTASSIUM 3.9 mmol/L (3.5-5.1)
[2022-11-11 08:26] LABS: CALCIUM 7.9 mg/dL (8.4-10.2)
[2022-11-11] MEDS ORDERED: DEXTROSE 50% SYRINGE 50 ML IV PRN (09:15)
[2022-11-11] MEDS ORDERED: METOPROLOL TARTRATE 50 MG TAB PO ONE (10:15)
[2022-11-11] MEDS ORDERED: METOPROLOL TARTRATE INJ 1 MG/ML VIAL IV PRN (10:15)
[2022-11-11 11:36] LABS: HEMATOCRIT 44.4 % (38.2-49.6); HEMOGLOBIN 14.8 g/dL (14.0-18.0)
[2022-11-11] MEDS: INSULIN REGULAR, HUMAN 100 UNIT/1 ML SQ SCH ×3 (11:45→20:59)
[2022-11-11] MEDS: INSULIN LISPRO 100 UNIT/1 ML 3ML VIAL SQ SCH ×2 (11:45→17:01)
[2022-11-11 12:34] VITALS: BP 145/93
[2022-11-11 12:42] VITALS: BP 145/93
[2022-11-11 15:38] VITALS: BP 116/85
[2022-11-11 16:05] LABS: HEMATOCRIT 42.1 % (38.2-49.6)
[2022-11-11] MEDS: VALACYCLOVIR HCL 500 MG TAB PO SCH (16:51)
[2022-11-11] MEDS: ASCORBIC ACID 500 MG TAB PO SCH (16:51)
[2022-11-11 18:33] LABS: HEMATOCRIT 42.6 % (38.2-49.6); HEMOGLOBIN 13.9 g/dL (14.0-18.0)
[2022-11-11 20:00] VITALS: BP 98/69
[2022-11-11] MEDS ORDERED: INSULIN GLARGINE 100 UNITS/ML VIAL SQ SCH (21:00)
[2022-11-11] MEDS: METOPROLOL SUCCINATE 50 MG TAB XL PO SCH (21:00)
[2022-11-12] VITALS: BP 104/84
[2022-11-12 04:00] VITALS: BP 120/92
[2022-11-12 05:55] LABS: BASOPHILS # (AUTO) 0.1 (0.0-0.1); EOSINOPHILS # (AUTO) 0.1 (0.0-0.4); EOSINOPHILS % 1.4 % (0.0-6.0); HEMATOCRIT 41.3 % (38.2-49.6); HEMOGLOBIN 13.8 g/dL (14.0-18.0); LYMPHOCYTES # (AUTO) 2.6 (1.0-3.2); LYMPHOCYTES % 29.1 % (18.0-39.1); MEAN CORPUSCULAR HEMOGLOBIN 34.2 pg (28-32); MEAN CORPUSCULAR HGB CONC 33.4 g/dL (31-35); MEAN CORPUSCULAR VOLUME 102.5 fL (81-99); MONOCYTES # (AUTO) 0.7 (0.2-0.8); MONOCYTES % 7.3 % (4.4-11.3); NEUTROPHILS # (AUTO) 5.4 (2.1-6.9); NEUTROPHILS % 60.3 % (38.7-80.0); PLATELET COUNT 124 x10e3/uL (140-360); RED BLOOD COUNT 4.03 x10e6/uL (4.3-5.7); RED CELL DISTRIBUTION WIDTH 12.3 % (11.7-14.4)
[2022-11-12] MEDS ORDERED: LEVOTHYROXINE SODIUM 75 MCG TAB PO SCH (06:00)
[2022-11-12 06:14] LABS: ALBUMIN 2.3 g/dL (3.5-5.0); ALBUMIN/GLOBULIN RATIO 0.8 (0.8-2.0); ANION GAP 8.1 mmol/L (8-16); CALCIUM 8.4 mg/dL (8.4-10.2); CREATININE, SERUM 1.21 mg/dL (0.72-1.25); POTASSIUM 4.1 mmol/L (3.5-5.1)
[2022-11-12 08:18] VITALS: BP 119/77
[2022-11-12] MEDS: INSULIN LISPRO 100 UNIT/1 ML 3ML VIAL SQ SCH ×2 (08:40→12:00)
[2022-11-12] MEDS: INSULIN REGULAR, HUMAN 100 UNIT/1 ML SQ SCH ×2 (08:40→12:00)
[2022-11-12 08:45] VITALS: BP 119/77
[2022-11-12] MEDS: VALACYCLOVIR HCL 500 MG TAB PO SCH (08:51)
[2022-11-12] MEDS: ASCORBIC ACID 500 MG TAB PO SCH (08:51)
[2022-11-12] MEDS: METOPROLOL SUCCINATE 50 MG TAB XL PO SCH (08:51)
[2022-11-12 12:04] VITALS: BP 119/81
[2022-11-12] MEDS ORDERED: SYNTHROID75 MCG PO (12:48)
[2022-11-12] MEDS ORDERED: ELIQUIS5 MG PO (12:48)
[2022-11-12] MEDS ORDERED: TOPROL XL50 MG PO (12:48)
[2022-11-12] MEDS ORDERED: Insulin Glargine SQ (12:48)
[2022-11-12] MEDS ORDERED: Insulin Lispro SQ (12:48)
== END 2022-11-12 14:41 | disposition home or self-care (01) | DRG 580 ==
LOC: ER 03:22 → ERHOLD 06:04 → MED/SURG 10:33
PROVIDERS: ADMIT Internal Medicine; ATTEND Internal Medicine
PROC: 0KQN0ZZ Repair Right Hip Muscle, Open Approach (ICD-10-PCS; principal; 2022-11-11)
DX: S71.131A Puncture wound without foreign body, right thigh, initial encounter (principal); E87.1 Hypo-osmolality and hyponatremia; I48.92 Unspecified atrial flutter; N17.9 Acute kidney failure, unspecified; X99.1XXA Assault by knife, initial encounter; Y92.89 Other specified places as the place of occurrence of the external cause; E10.65 Type 1 diabetes mellitus with hyperglycemia; I48.91 Unspecified atrial fibrillation; Z79.01 Long term (current) use of anticoagulants; Y90.6 Blood alcohol level of 120-199 mg/100 ml; Z91.128 Patient's intentional underdosing of medication regimen for other reason; K74.60 Unspecified cirrhosis of liver; F17.210 Nicotine dependence, cigarettes, uncomplicated; F10.20 Alcohol dependence, uncomplicated; Z20.822 Contact with and (suspected) exposure to COVID-19; F10.220 Alcohol dependence with intoxication, uncomplicated; Z59.7 Insufficient social insurance and welfare support
CPT/HCPCS: 36415; 70486; 80053; 80307; 80320; 82948; 83036; 84443; 85014; 85018; 85025; 85610; 85730; 99285; J0690; J1160; J1815; J1817; J2001; J3010; J7030; J7050; Q9967

== ENCOUNTER 2022-11-28 17:43 | Emergency (ER) | payer SELFPAY ==
[~2022-11-28] VITALS: Ht 172.7 cm; Wt 91.6 kg
== END 2022-11-28 18:40 | disposition home or self-care (01) ==
LOC: ER 17:46
DX: Z48.02 Encounter for removal of sutures (principal)
CPT/HCPCS: 99282; S0630

== ENCOUNTER 2023-01-22 10:28 | Inpatient (IN) | payer SELFPAY ==
[~2023-01-22] VITALS: Ht 172.7 cm; Wt 103.0 kg
[2023-01-22 11:36] LABS: BASOPHILS # (AUTO) 0.1 (0.0-0.1); BASOPHILS % 1.6 % (0.0-1.0); EOSINOPHILS # (AUTO) 0.1 (0.0-0.4); EOSINOPHILS % 1.3 % (0.0-6.0); HEMATOCRIT 49.2 % (38.2-49.6); HEMOGLOBIN 16.9 g/dL (14.0-18.0); LYMPHOCYTES # (AUTO) 1.4 (1.0-3.2); LYMPHOCYTES % 22.5 % (18.0-39.1); MEAN CORPUSCULAR HEMOGLOBIN 34.4 pg (28-32); MEAN CORPUSCULAR HGB CONC 34.3 g/dL (31-35); MEAN CORPUSCULAR VOLUME 100.2 fL (81-99); MONOCYTES # (AUTO) 0.4 (0.2-0.8); MONOCYTES % 6.8 % (4.4-11.3); NEUTROPHILS # (AUTO) 4.2 (2.1-6.9); NEUTROPHILS % 66.8 % (38.7-80.0); PLATELET COUNT 136 x10e3/uL (140-360); RED BLOOD COUNT 4.91 x10e6/uL (4.3-5.7); RED CELL DISTRIBUTION WIDTH 13.6 % (11.7-14.4)
[2023-01-22] MEDS ORDERED: FUROSEMIDE INJ 10 MG/ML 4 ML VIAL IV ONE (11:45)
[2023-01-22 11:54] LABS: ALBUMIN 2.9 g/dL (3.5-5.0); ALBUMIN/GLOBULIN RATIO 0.9 (0.8-2.0); ANION GAP 11.7 mmol/L (8-16); CALCIUM 8.8 mg/dL (8.4-10.2); CREATININE, SERUM 1.37 mg/dL (0.72-1.25); POTASSIUM 4.7 mmol/L (3.5-5.1)
[2023-01-22] MEDS ORDERED: ENOXAPARIN SODIUM INJ 100 MG/ML SYR SC STA (12:26)
[2023-01-22] MEDS ORDERED: DILTIAZEM HCL 5 MG/ML 5 ML VIAL IV ONE (12:30)
[2023-01-22 14:24] LABS: THYROID STIMULATING HORMONE 21.039 uIU/mL (0.350-4.940)
[2023-01-22 14:29] LABS: FREE THYROXINE INDEX 0.2402373 (1.4-3.8)
[2023-01-22 17:42] LABS: CLARITY,URINE CLEAR (CLEAR); COLOR,URINE YELLOW (YELLOW); KETONES,URINE NEGATIVE (NEGATIVE); LEUKOCYTE ESTERASE ,URINE NEGATIVE (NEGATIVE); NITRITE,URINE NEGATIVE (NEGATIVE); PROTEIN,URINE DIPSTICK 2+ (NEGATIVE); URINE UROBILINOGEN 0.2 mg/dL (0.2 - 1)
[2023-01-22 17:50] LABS: WBC,URINE (MAN) 0-5 /HPF (0-5)
[2023-01-22 17:51] LABS: BACTERIA,URINE RARE /HPF; EPITHELIAL CELLS,URINE FEW /LPF
[2023-01-22 17:52] LABS: MUCUS,URINE FEW (RARE)
[2023-01-22] MEDS ORDERED: METOPROLOL TARTRATE 25 MG TAB PO SCH (20:00)
[2023-01-22 20:35] VITALS: BP 111/95
[2023-01-22] MEDS: FUROSEMIDE INJ 10 MG/ML 4 ML VIAL IV SCH (22:06)
[2023-01-22 22:13] VITALS: BP 111/95
[2023-01-22 23:06] VITALS: BP 111/95
[2023-01-23] VITALS (7 sets, daily range): BP systolic 110–126; BP diastolic 86–110
[2023-01-23] MEDS: METOPROLOL TARTRATE 25 MG TAB PO SCH ×2 (02:21→06:14)
[2023-01-23 06:01] LABS: BASOPHILS # (AUTO) 0.1 (0.0-0.1); BASOPHILS % 2.1 % (0.0-1.0); EOSINOPHILS # (AUTO) 0.1 (0.0-0.4); EOSINOPHILS % 1.9 % (0.0-6.0); HEMATOCRIT 48.3 % (38.2-49.6); HEMOGLOBIN 17.1 g/dL (14.0-18.0); LYMPHOCYTES % 32.3 % (18.0-39.1); MEAN CORPUSCULAR HEMOGLOBIN 34.8 pg (28-32); MEAN CORPUSCULAR HGB CONC 35.4 g/dL (31-35); MEAN CORPUSCULAR VOLUME 98.4 fL (81-99); MONOCYTES # (AUTO) 0.5 (0.2-0.8); MONOCYTES % 7.2 % (4.4-11.3); NEUTROPHILS # (AUTO) 3.5 (2.1-6.9); NEUTROPHILS % 55.9 % (38.7-80.0); PLATELET COUNT 129 x10e3/uL (140-360); RED BLOOD COUNT 4.91 x10e6/uL (4.3-5.7); RED CELL DISTRIBUTION WIDTH 13.7 % (11.7-14.4)
[2023-01-23] MEDS: LEVOTHYROXINE SODIUM 75 MCG TAB PO SCH (06:09)
[2023-01-23 06:28] LABS: ALBUMIN 2.8 g/dL (3.5-5.0); ALBUMIN/GLOBULIN RATIO 0.8 (0.8-2.0); ANION GAP 14.3 mmol/L (8-16); CALCIUM 8.8 mg/dL (8.4-10.2); CREATININE, SERUM 1.25 mg/dL (0.72-1.25); POTASSIUM 4.3 mmol/L (3.5-5.1)
[2023-01-23 06:53] LABS: MAGNESIUM 1.8 MG/DL (1.3-2.1); PHOSPHORUS 2.8 MG/DL (2.3-4.7)
[2023-01-23] MEDS: INSULIN LISPRO 100 UNIT/1 ML 3ML VIAL SQ SCH ×3 (07:30→18:30)
[2023-01-23] MEDS ORDERED: VALACYCLOVIR HCL 500 MG TAB PO SCH (09:00)
[2023-01-23] MEDS ORDERED: APIXABAN 5 MG TABLET PO SCH (09:00)
[2023-01-23] MEDS ORDERED: METOPROLOL SUCCINATE 50 MG TAB XL PO SCH (09:00)
[2023-01-23] MEDS: ASCORBIC ACID 500 MG TAB PO SCH ×2 (09:27→17:16)
[2023-01-23] MEDS: APIXABAN 5 MG TABLET PO SCH ×2 (09:27→17:16)
[2023-01-23] MEDS: FUROSEMIDE INJ 10 MG/ML 4 ML VIAL IV SCH ×2 (09:27→21:44)
[2023-01-23] MEDS: CHOLECALCIFEROL 400 UNIT TAB PO SCH (09:27)
[2023-01-23] MEDS: ATORVASTATIN 40 MG TAB PO SCH (21:44)
[2023-01-23] MEDS: INSULIN GLARGINE 100 UNITS/ML VIAL SQ SCH (21:55)
[2023-01-24] VITALS (9 sets, daily range): BP systolic 102–126; BP diastolic 82–102
[2023-01-24 04:55] LABS: BASOPHILS # (AUTO) 0.1 (0.0-0.1); BASOPHILS % 1.8 % (0.0-1.0); EOSINOPHILS # (AUTO) 0.2 (0.0-0.4); EOSINOPHILS % 2.4 % (0.0-6.0); HEMATOCRIT 46.6 % (38.2-49.6); HEMOGLOBIN 16.5 g/dL (14.0-18.0); LYMPHOCYTES # (AUTO) 2.5 (1.0-3.2); LYMPHOCYTES % 37.7 % (18.0-39.1); MEAN CORPUSCULAR HEMOGLOBIN 34.5 pg (28-32); MEAN CORPUSCULAR HGB CONC 35.4 g/dL (31-35); MEAN CORPUSCULAR VOLUME 97.5 fL (81-99); MONOCYTES # (AUTO) 0.6 (0.2-0.8); MONOCYTES % 8.4 % (4.4-11.3); NEUTROPHILS # (AUTO) 3.2 (2.1-6.9); NEUTROPHILS % 49.1 % (38.7-80.0); PLATELET COUNT 132 x10e3/uL (140-360); RED BLOOD COUNT 4.78 x10e6/uL (4.3-5.7); RED CELL DISTRIBUTION WIDTH 13.3 % (11.7-14.4)
[2023-01-24 05:23] LABS: ALBUMIN 2.7 g/dL (3.5-5.0); ALBUMIN/GLOBULIN RATIO 0.8 (0.8-2.0); CREATININE, SERUM 1.14 mg/dL (0.72-1.25); MAGNESIUM 1.8 MG/DL (1.3-2.1)
[2023-01-24] MEDS: LEVOTHYROXINE SODIUM 75 MCG TAB PO SCH (06:30)
[2023-01-24 06:31] LABS: EOSINOPHILS % (MANUAL) 3 % (0-7); LYMPHOCYTES % (MANUAL) 28 % (19-48); MONOCYTES % (MANUAL) 3 % (3.4-9.0); NEUTROPHILS % (MANUAL) 58 % (40-74); PLATELET ESTIMATE SLIGHTLY DECREASED; PLATELET MORPHOLOGY COMMENT FEW LARGE; RBC MORPHOLOGY COMMENT NORMAL
[2023-01-24] MEDS ORDERED: METOPROLOL SUCCINATE 50 MG TAB XL PO SCH (09:00)
[2023-01-24] MEDS ORDERED: LOSARTAN POTASSIUM 25 MG TAB PO SCH (09:00)
[2023-01-24] MEDS: ASCORBIC ACID 500 MG TAB PO SCH ×2 (09:28→16:39)
[2023-01-24] MEDS: APIXABAN 5 MG TABLET PO SCH ×2 (09:29→16:39)
[2023-01-24] MEDS: CHOLECALCIFEROL 400 UNIT TAB PO SCH (09:30)
[2023-01-24] MEDS: FUROSEMIDE INJ 10 MG/ML 4 ML VIAL IV SCH (09:30)
[2023-01-24] MEDS: INSULIN LISPRO 100 UNIT/1 ML 3ML VIAL SQ SCH ×3 (09:37→16:38)
[2023-01-24] MEDS ORDERED: SPIRONOLACTONE 25 MG TAB PO SCH (12:00)
[2023-01-24 14:24] LABS: CREATININE,URINE RANDOM 10.56 mg/dL (63-166); TOTAL PROTEIN, URINE 29.5 mg/dL (1-14)
[2023-01-24] MEDS ORDERED: FUROSEMIDE 40 MG TAB PO SCH (18:00)
[2023-01-24] MEDS ORDERED: ASCORBIC ACID500 MG PO (19:17)
[2023-01-24] MEDS ORDERED: TOPROL XL50 MG PO (19:17)
[2023-01-24] MEDS ORDERED: Insulin Lispro SQ (19:17)
[2023-01-24] MEDS ORDERED: FUROSEMIDE40 MG PO (19:17)
[2023-01-24] MEDS ORDERED: COZAAR25 MG PO (19:17)
[2023-01-24] MEDS ORDERED: ALDACTONE25 MG PO (19:17)
[2023-01-24] MEDS ORDERED: Cholecalciferol PO (19:17)
[2023-01-24] MEDS ORDERED: ATORVASTATIN CA40 MG PO (19:17)
[2023-01-24] MEDS ORDERED: ELIQUIS5 MG PO (19:17)
[2023-01-24] MEDS ORDERED: Insulin Glargine SQ (19:17)
[2023-01-24] MEDS: INSULIN GLARGINE 100 UNITS/ML VIAL SQ SCH (21:00)
[2023-01-24] MEDS: ATORVASTATIN 40 MG TAB PO SCH (21:04)
[2023-01-25] MEDS ORDERED: SPIRONOLACTONE 25 MG TAB PO SCH (09:00)
== END 2023-01-24 21:06 | disposition home or self-care (01) | DRG 291 ==
LOC: ER 10:37 → ERHOLD 12:28 → MED/SURG 20:07 → OBSVTOIN 01-23 09:15
PROVIDERS: ADMIT Family Medicine Adult Medicine; ATTEND Family Medicine Adult Medicine
DX: I11.0 Hypertensive heart disease with heart failure (principal); I50.23 Acute on chronic systolic (congestive) heart failure; J96.01 Acute respiratory failure with hypoxia; E78.5 Hyperlipidemia, unspecified; E03.9 Hypothyroidism, unspecified; E10.65 Type 1 diabetes mellitus with hyperglycemia; K74.60 Unspecified cirrhosis of liver; I48.0 Paroxysmal atrial fibrillation; E88.09 Other disorders of plasma-protein metabolism, not elsewhere classified; E66.9 Obesity, unspecified; Z91.148 Patient's other noncompliance with medication regimen for other reason; Z68.34 Body mass index [BMI] 34.0-34.9, adult; Z79.4 Long term (current) use of insulin; Z87.891 Personal history of nicotine dependence; Z79.01 Long term (current) use of anticoagulants
CPT/HCPCS: 0223U; 36415; 71045; 80053; 81001; 82570; 82948; 83735; 83880; 84100; 84156; 84436; 84443; 84479; 84484; 85025; 93005; 93306; 94799; G0378; J1650; J1815; J1940